=== PATIENT | female | born 1970 | race Caucasian/White ===

== ENCOUNTER 2020-04-14 17:07 | Emergency (ER) | payer OTHER, SELFPAY ==
[2020-04-14 17:10] VITALS: BP 143/85; PULSE 83; RESP 14; TEMP 37.1; O2SAT 99
[2020-04-14] MEDS: TETANUS,DIPHTHERIA,AC PERTUSSIS ADULT 0.5 ML (ADACEL) IM (17:45)
--- NOTE | 2020-04-14 17:57 | ED.WOUNDLAC ---
HPI - Wound/Laceration General Chief Complaint: Wound/Laceration Stated Complaint: cut thumb at work Source: patient Mode of arrival: ambulatory Limitations: no limitations History of Present Illness HPI narrative: patient is a 41-year-old female that injured her anterior left thumb while at work and has a laceration approximately2.5cm in length mildly gaping initially had some bleeding, not up-to-date with her tetanus. There is no numbness or tingling has full range of motion of her thumb currently no bleeding. Onset (ago): hour(s) Extremity Location: Left: hand ( Left anterior thumb laceration) Place: work Patient tetanus UTD: No Context: accidental Associated symptoms: none Treatments prior to arrival: bandage Related Data Home Medications Medication Instructions Recorded Confirmed omeprazole 40 mg PO DAILY 04/14/20 04/14/20 Allergies Allergy/AdvReac Type Severity Reaction Status Date / Time No Known Allergies Allergy Verified 04/14/20 17:31 Review of Systems Review of Systems: All systems reviewed & are unremarkable except as noted in HPI and below PMFSH Past Medical History Medical History GERD (gastroesophageal reflux disease) Exam Const: General: no acute distress Nutritional Appearance: well nourished Orientation/consciousness: patient oriented x3 HENMT: Head: normal to inspection Eyes: Conjunctivae: conjunctivae normal Pupils: Equal, round and reactive pupils present EOM: EOMs intact bilaterally Neck: Neck: normal visual inspection, no lymphadenopathy and no meningeal signs Chest: Chest palpation & inspection: normal inspection of the chest Resp: Effort & Inspection: normal respiratory effort Auscultation: clear to auscultation bilaterally Cardio: Rate: regular rate Rhythm: regular rhythm GI: GI Palp: Yes Soft to palpation Percussion: Yes normal to percussion Skin: General skin exam: normal color Other: 2.5cm mildly gaping laceration anterior left thumb Extrem: General: normal to inspection Psych: Mental Status: mental status grossly normal Course Course Emergency Course: patient tolerated procedure well and patient was up updated with her tetanus vaccine Vital Signs Vital signs: Vital Signs Temperature 37.1 C 04/14/20 17:10 Pulse Rate 83 04/14/20 17:10 Respiratory Rate 14 04/14/20 17:10 Blood Pressure 143/85 H 04/14/20 17:10 Pulse Oximetry 99 04/14/20 17:10 Temperature 37.1 C 04/14/20 17:10 Pulse Rate 83 04/14/20 17:10 Respiratory Rate 14 04/14/20 17:10 Blood Pressure 143/85 H 04/14/20 17:10 Pulse Oximetry 99 04/14/20 17:10 Procedures Laceration Laceration 1: Date: 04/14/20 Time: 18:01 Site: upper extremity Side (If applicable): left (ant thumb) Size (cm): 2.5 Description: linear and flap ====== Skin Level ====== Skin layer closed with: dermabond ====== Subcutaneous Layer ====== ====== Muscle Layer ====== ====== Tendon Layer ====== Critical Care Time Critical Care Time Critical Care Time: No Discharge Plan Discharge Clinical Impression: Laceration Patient Disposition: Home, Self-Care Condition: Stable Instructions: Antibiotic Form, Skin Adhesive Care (ED), Laceration (ED) Additional Instructions: follow-up with primary care physician if symptoms persist or worsen, follow up with some employer for workman's comp paperwork to be filled out. Prescriptions: No Action omeprazole 20 mg Tablet,Delayed Release (Dr/Ec) 40 mg PO DAILY RF: 0 Interventions: Discharge Disposition Last Done: 04/14/20 17:59 Follow-up/Referrals: UNKNOWN,DOCTOR [Primary Care Provider] - Stand Alone Forms: Work/School Release IP Time of Disposition: 18:03
[2020-04-14 17:59] VITALS: PULSE 80; O2SAT 99
--- NOTE | 2020-04-14 17:59 | PC.NURSE ---
WOUND CLEANSED BY RN. DERMABOND APPLIED TO WOUND BY SEGUNDO.
== END 2020-04-14 18:09 | disposition home or self-care (01) ==
PROVIDERS: Emergency Provider Emergency Medicine
DX: S61.012A Laceration without foreign body of left thumb without damage to nail, initial encounter (principal); W45.8XXA Other foreign body or object entering through skin, initial encounter
CPT/HCPCS: 12001; 90471; 90715; 99282

== ENCOUNTER 2020-05-06 13:08 | Outpatient (CLI) | payer OTHER, SELFPAY | END 2020-05-06 13:09 | disposition home or self-care (01) | LOC: CHSLAB 13:10 | PROVIDERS: Visit Provider Family Medicine | DX: Z01.84 Encounter for antibody response examination (principal) | CPT/HCPCS: 36415; 86769 ==

== ENCOUNTER 2020-06-11 19:26 | Emergency (ER) | payer OTHER, SELFPAY ==
[2020-06-11 19:51] VITALS: BP 163/76; PULSE 84; RESP 18; TEMP 36.8; O2SAT 95
--- NOTE | 2020-06-11 19:55 | ED.SKABFB ---
HPI - Skin/Abscess/Foreign Bdy General Chief complaint: Skin/Abscess/Foreign Body Stated complaint: lump on R breast Time Seen by Provider: 06/11/20 19:55 Source: patient Mode of arrival: ambulatory Limitations: no limitations History of Present Illness HPI narrative: 41-year-old woman comes in today complaining of a tender lump in her upper right breast that she noted yesterday while taking a shower. She states that she has no overlying skin changes, lumps or bumps in her armpit, injury, fever her prior similar findings. She has had known nipple discharge. She has never had a mammogram. Denies history of . complaint: other Onset (ago): day(s) (1) Severity: mild Quality: sharp Pain Consistency: constant Relieving factors: none Exacerbating factors: palpation Related Data Home Medications Medication Instructions Recorded Confirmed omeprazole 40 mg PO DAILY 04/14/20 06/11/20 Allergies Allergy/AdvReac Type Severity Reaction Status Date / Time No Known Allergies Allergy Verified 04/14/20 17:31 Review of Systems Constitutional: Constitutional: Denies chills and Denies fever(s) Eyes: Eyes: Denies change in vision and Denies photophobia ENT: Denies dysphagia, Denies nasal congestion and Denies sore throat Cardiovascular: Cardiovascular: Denies chest pain and Denies radiating jaw, neck or arm pain Respiratory: Respiratory: Denies cough and Denies dyspnea Gastrointestinal: Gastrointestinal: Denies abdominal pain, Denies nausea and Denies vomiting Genitourinary: Genitourinary: Denies nocturia and Denies dysuria Musculoskeletal: Musculoskeletal: Denies back pain, Denies arthralgias and Denies joint swelling Integumentary/Breasts: Skin/Breast: Denies pruritus, Denies erythema and Denies rash Neurologic: Denies vertigo, Denies dizziness and Denies syncope Hematologic/Lymphatic: Hematologic/Lymphatic: Denies easy bleeding and Denies easy bruising Allergic/Immunologic: Allergic/Immunologic: Denies throat swelling and Denies tongue swelling PMFSH Past Medical History Medical History GERD (gastroesophageal reflux disease) Social History Social History Smoking status: Never smoker Alcohol intake: never Substance use: never Living arrangements: with family Occupation/Education: occupation 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 There are no overlying skin changes such as peau d'orange, puckering or erythema. No fluctuance. No palpable axillary adenopathy or masses. Resp: Effort & Inspection: normal respiratory effort and not labored Auscultation: clear to auscultation bilaterally, no rales, no rhonchi and no wheezes Cardio: Rate: regular rate Rhythm: regular rhythm Heart sounds: no murmurs Skin: General skin exam: normal color, no jaundice and no pallor Rashes: no rashes Neuro: General: patient oriented x3, moves all extremities, no focal motor deficits and CN's II-XI intact bilaterally Speech: normal speech Gait exam (Neuro): Normal gait present Extrem: General: normal to inspection and no clubbing, cyanosis or edema Psych: Appearance: grossly normal and well kempt Mental Status: mental status grossly normal Affect: normal affect Attitude: cooperative Thought content: Yes Normal thought content present Course Vital Signs Vital signs: Vital Signs Temperature 36.8 C 06/11/20 19:51 Pulse Rate 84 06/11/20 19:51 Respiratory Rate 18 06/11/20 19:51 Blood Pressure 163/76 H
== END 2020-06-11 20:20 | disposition home or self-care (01) ==
PROVIDERS: Emergency Provider Emergency Medicine
DX: N63.10 Unspecified lump in the right breast, unspecified quadrant (principal)
CPT/HCPCS: 99281; 99282

== ENCOUNTER 2020-08-07 12:28 | Outpatient (CLI) | payer OTHER, SELFPAY ==
--- NOTE | ~2020-08-07 | MM_ITS ---
EXAMINATION: MM screening [facility] w [facility] HISTORY: Screening mammogram TECHNIQUE: Craniocaudal and mediolateral oblique 3-D tomosynthesis images were obtained and synthetic 2-D images were generated. CAD analysis was submitted and interpreted. COMPARISON: No prior mammogram is available for comparison at this institution. BREAST PARENCHYMAL COMPOSITION: There are scattered areas of fibroglandular density. FINDINGS: There is no evidence of suspicious mass, calcification, or architectural distortion to sugg est malignancy in either breast. There has been no suspicious interval change. IMPRESSION: 1. No mammographic evidence of malignancy. 2. Recommend routine screening mammography in one year. BI-RADS Category 1: Negative Reviewed, dictated and finalized at location [facility]
== END 2020-08-07 12:29 | disposition home or self-care (01) ==
LOC: CHSIMG 12:38
PROVIDERS: Visit Provider Nurse Practitioner
DX: Z12.31 Encounter for screening mammogram for malignant neoplasm of breast (principal)
CPT/HCPCS: 77063; 77067

== ENCOUNTER 2021-05-29 09:17 | Emergency (ER) | payer SELFPAY ==
[2021-05-29 09:30] VITALS: BP 148/90; PULSE 88; RESP 16; TEMP 37.3; O2SAT 99
--- NOTE | 2021-05-29 09:54 | ED.ANIMALBIT ---
HPI - Animal Bite General Chief Complaint: Animal Bite Stated Complaint: DOG BITE Source: patient Mode of arrival: ambulatory Limitations: no limitations History of Present Illness HPI narrative: Works at [employer] and was taking a dog back to the kennel and it bit her. She has a 1 inch lac to left forearm complaint: animal bite Onset (ago): minute(s) Animal: dog Description of animal: household pet Mechanism: bite Location: other (left forearm) Location - Extremities: Left: forearm [facility] Associated symptoms: none Treatments prior to arrival: irrigation Related Data Patient tetanus UTD: Yes (2 yrs ago) Home Medications Medication Instructions Recorded Confirmed omeprazole 40 mg PO DAILY 04/14/20 05/29/21 Allergies Allergy/AdvReac Type Severity Reaction Status Date / Time No Known Allergies Allergy Verified 04/14/20 17:31 Review of Systems Review of Systems: All systems reviewed & are unremarkable except as noted in HPI and below Constitutional: Constitutional: Reports no additional constitutional complaints Eyes: Eyes: Reports no additional eye complaints ENT: Reports system reviewed and no additional complaints, except as documented Cardiovascular: Cardiovascular: Reports no additional cardiovascular complaints Respiratory: Respiratory: Reports no additional respiratory complaints Gastrointestinal: Gastrointestinal: Reports no additional gastrointestinal complaints Genitourinary: Genitourinary: Reports no additional female genitourinary complaints Musculoskeletal: Musculoskeletal: Reports no additional musculoskeletal complaints Integumentary/Breasts: Skin/Breast: Reports system reviewed and no additional complaints, except as docu Neurologic: Reports system reviewed and no additional complaints, except as documented Psychiatric: Psychiatric: Reports no additional psychiatric complaints Endocrine: Endocrine: Reports no additional endocrine complaints Hematologic/Lymphatic: Hematologic/Lymphatic: Reports no additional hematologic/lymphatic complaints Allergic/Immunologic: Allergic/Immunologic: Reports no additional allergic/immunologic complaints [facility] Past Medical History Medical History (Updated 05/29/21 @ 09:58 by Ceci Reese MD) GERD (gastroesophageal reflux disease) Social History Social History Smoking status: Never smoker Alcohol intake: never Substance use: never 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 Exam Const: General: no acute distress and alert Orientation/consciousness: patient oriented x3 HENMT: Head: normal to inspection Neck: Neck: normal visual inspection Chest: Chest palpation & inspection: normal inspection of the chest Resp: Effort & Inspection: normal respiratory effort Skin: General skin exam: normal color Other: 1 inch lac to left forearm Neuro: General: patient oriented x3 Extrem: General: normal to inspection Psych: Mental Status: mental status grossly normal Course Vital Signs Vital signs: Vital Signs Temperature 37.3 C 05/29/21 09:30 Pulse Rate 88 05/29/21 09:30 Respiratory Rate 16 05/29/21 09:30 Blood Pressure 148/90 H 05/29/21 09:30 Pulse Oximetry 99 05/29/21 09:30 Temperature 37.3 C 05/29/21 09:30 Pulse Rate 88 05/29/21 09:30 Respiratory Rate 16 05/29/21 09:30 Blood Pressure 148/90 H 05/29/21 09:30 Pulse Oximetry 99 05/29/21 09:30 Procedures Laceration Laceration 1: Date: 05/29/21 Time: 09:57 Side (If applicable): left Description: linear Depth: simple, single layer Local Anesthetic: lidocaine 1% Pre-repair: wound explored and irrigated extensively ====== Skin Level ====== Skin layer closed with: nylon Size (cm): 4-0 Number of sutures: 1 Technique: simple, interrupted (loose)
[2021-05-29 10:00] VITALS: RESP 15; O2SAT 99
== END 2021-05-29 10:05 | disposition home or self-care (01) ==
PROVIDERS: Emergency Provider Emergency Medicine
DX: S51.852A Open bite of left forearm, initial encounter (principal); W54.0XXA Bitten by dog, initial encounter
CPT/HCPCS: 12001; 99283